=== PATIENT | female | born 1995 | race African-American/Black ===

== ENCOUNTER → 2021-10-10 | Emergency (ER) | payer OTHER ==
[~2021-10-10] VITALS: Ht 154.9 cm; Wt 74.8 kg
[~2021-10-10] MED LIST: ZITHROMAX500 MG PO
== END | disposition home or self-care (01) ==
LOC: ER 12:49
DX: B34.9 Viral infection, unspecified (principal); Z20.822 Contact with and (suspected) exposure to COVID-19

== ENCOUNTER 2021-12-25 06:05 | Emergency (ER) | payer OTHER ==
[~2021-12-25] VITALS: Ht 154.9 cm; Wt 78.0 kg
[2021-12-25] MEDS ORDERED: OMEPRAZOLE MAGN20 MG PO (13:06)
[2021-12-25] MEDS ORDERED: PEPCID AC20 MG PO (13:06)
== END 2021-12-25 13:35 | disposition home or self-care (01) ==
LOC: ER 06:05
DX: R10.13 Epigastric pain (principal)

== ENCOUNTER 2022-10-11 19:50 | Emergency (ER) | payer OTHER ==
[~2022-10-11] VITALS: Ht 154.9 cm; Wt 77.1 kg
[~2022-10-11 19:50] MED LIST changes: +OMEPRAZOLE MAGN20 MG PO; +PEPCID AC20 MG PO
== END 2022-10-12 00:05 | disposition home or self-care (01) ==
LOC: ER 19:50
DX: B34.9 Viral infection, unspecified (principal); Z88.1 Allergy status to other antibiotic agents; R51.9 Headache, unspecified

== ENCOUNTER 2022-10-20 08:47 | Emergency (ER) | payer OTHER ==
[~2022-10-20] VITALS: Ht 154.9 cm; Wt 79.4 kg
[2022-10-20] MEDS ORDERED: CIPROFLOXACIN500 MG PO (08:59)
[2022-10-20] MEDS ORDERED: DICLOFENAC POTA50 MG PO (08:59)
[2022-10-20] MEDS ORDERED: DEXAMETHASONE4 MG PO (08:59)
[2022-10-20] MEDS ORDERED: ZITHROMAX500 MG PO (11:31)
[2022-10-20] MEDS ORDERED: TUSSIN DM SYRU118 ML PO (11:33)
[2022-10-20] MEDS ORDERED: CLARITIN-D 121 EACH PO (11:33)
== END 2022-10-20 11:39 | disposition home or self-care (01) ==
LOC: ER 08:47
DX: B34.9 Viral infection, unspecified (principal); Z20.822 Contact with and (suspected) exposure to COVID-19; Z88.8 Allergy status to other drugs, medicaments and biological substances

== ENCOUNTER → 2023-06-14 | Emergency (ER) | payer OTHER ==
[~2023-06-14] VITALS: Ht 154.9 cm; Wt 84.4 kg
[~2023-06-14] MED LIST changes: +CIPROFLOXACIN500 MG PO; +CLARITIN-D 121 EACH PO; +DEXAMETHASONE4 MG PO; +DICLOFENAC POTA50 MG PO; +TUSSIN DM SYRU118 ML PO
== END | disposition left against medical advice (07) ==
LOC: ER 12:59
DX: Z53.21 Procedure and treatment not carried out due to patient leaving prior to being seen by health care provider (principal)

== ENCOUNTER 2024-09-25 00:54 | Emergency (ER) | payer OTHER ==
[~2024-09-25] VITALS: Ht 154.9 cm; Wt 89.8 kg
[2024-09-25] MEDS ORDERED: METOCLOPRAMIDE HCL 5 MG/ML VIAL IM STA (06:28)
[2024-09-25] MEDS ORDERED: HYOSCYAMINE SULFATE 0.125 MG TAB.SUBL SL STA (06:29)
[2024-09-25] MEDS ORDERED: FAMOtidine 10 MG/ML (4ML VIAL) IV PUSH STA (06:29)
== END 2024-09-25 07:28 | disposition home or self-care (01) ==
LOC: ER 00:56
DX: K29.60 Other gastritis without bleeding (principal); Z88.8 Allergy status to other drugs, medicaments and biological substances